=== PATIENT | female | born 1995 | race African-American/Black ===

== ENCOUNTER → 2017-07-09 12:30 | Observation (INO) ==
[2017-07-09 10:03] LABS: Basophils % 0.3 % (0.0-0.8); Eosinophils % 0.4 % (0.00-10.9); Hematocrit 35.6 VOL% (35.7-47.0); Immature Granulocytes % 0.7 %; Immature Granulocytes Absolute 0.05 #; Lymphocytes # 2.6 10*3/uL (1.4-4.0); Lymphocytes % 36.6 % (21.3-54.2); Mean Corpuscular HGB Conc 33.7 GM/DL (32-36); Mean Corpuscular Hemoglobin 28 PG (27-34); Mean Platelet Volume 8.3 FL (9.6-12.0); Monocytes # 0.5 10*3/uL (0.11-0.8); Monocytes % 7.5 % (1.7-12.7); Neutrophils # 3.8 10*3/uL (1.4-7.4); Neutrophils % 54.5 % (38.7-73.9); Platelet Count 303 T/CUMM (130-400); Red Blood Count 4.34 MC/CUMM (3.8-5.5); Red Cell Distribution Width 14.1 % (9.3-17.3)
[2017-07-09 10:32] LABS: Alanine Aminotransferase 14 U/L (13-56); Albumin 3.2 G/DL (3.4-5.0); Alkaline Phosphatase 78 U/L (45-117); Aspartate Amino Transferase 11 U/L (0-37); Bilirubin,Total < 0.39 MG/DL (0.2-1.0); Blood Urea Nitrogen 5 MG/DL (7-18); Calcium 10.6 MG/DL (8.5-10.1); Glucose 88 MG/DL (74-106); Osmolality,Calculated 272.5 MOS/KG (273-304); Sodium 139 MMOL/L (136-145); Total Protein 6.4 G/DL (6.4-8.3)
[2017-07-09 11:29] VITALS: BP 115/61
[2017-07-09 12:16] LABS: Apearance,Urine Clear (Clear); Bilirubin,Urine Negative (Negative); Blood, Urine Negative (Negative); Glucose,Urine (UA) Negative (Negative); Ketones,Urine Negative (Negative); Nitrite,Urine Negative (Negative); Protein,Urine Negative; Urine Color Yellow (Yellow); Urine Specific Gravity 1.005 (1.001-1.035); Urine Urobilinogen 0.2 EU/DL (0.2-1.0)
[2017-07-09 12:28] LABS: Amorphous Crystals,Urine Moderate /HPF (Few); Squamous Epithelial Cell,Urine Few /HPF (0-10)
[~2017-07-09 12:30] MED LIST: LACTATED RINGERS 1,000 ML IV ONE; ONDANSETRON 4 MG/2 ML VIAL IV PRN
== END | disposition home or self-care (01) ==
LOC: N.OB
PROVIDERS: ADMIT Specialist; ATTEND Specialist

== ENCOUNTER 2018-01-06 09:25 | Inpatient (IN) ==
[2018-01-06 10:09] LABS: Apearance,Urine Slightly Hazy (Clear); Bacteria,Urine Occasional /HPF (Few); Bilirubin,Urine Negative (Negative); Blood, Urine Negative (Negative); Glucose,Urine (UA) Negative (Negative); Ketones,Urine Negative (Negative); Nitrite,Urine Negative (Negative); Protein,Urine Negative; RBC,Urine 1 /HPF (0-4); Squamous Epithelial Cell,Urine Occasional /HPF (0-10); Urine Color Yellow (Yellow); Urine Specific Gravity 1.008 (1.001-1.035); Urine Urobilinogen < 2.0 EU/DL (0.2-1.0); WBC,Urine 1 /HPF (0-6)
[2018-01-06 11:00] LABS: Basophils % 0.4 % (0.0-0.8); Eosinophils % 0.4 % (0.00-10.9); Hematocrit 33.4 VOL% (35.7-47.0); Immature Granulocytes % 1.6 %; Immature Granulocytes Absolute 0.13 #; Lymphocytes # 2.2 10*3/uL (1.4-4.0); Lymphocytes % 27.1 % (21.3-54.2); Mean Corpuscular HGB Conc 32.9 GM/DL (32-36); Mean Corpuscular Hemoglobin 26 PG (27-34); Mean Corpuscular Volume 78.4 FL (87-102); Mean Platelet Volume 8.5 FL (9.6-12.0); Monocytes # 0.5 10*3/uL (0.11-0.8); Monocytes % 6.1 % (1.7-12.7); Neutrophils # 5.3 10*3/uL (1.4-7.4); Neutrophils % 64.4 % (38.7-73.9); Platelet Count 348 T/CUMM (130-400); Red Blood Count 4.26 MC/CUMM (3.8-5.5); Red Cell Distribution Width 14.3 % (9.3-17.3); White Blood Count 8.2 T/CUMM (4-12)
[2018-01-06 11:25] LABS: Alanine Aminotransferase 11 U/L (13-56); Albumin 2.3 G/DL (3.4-5.0); Alkaline Phosphatase 245 U/L (45-117); Aspartate Amino Transferase 13 U/L (0-37); Bilirubin,Total < 0.39 MG/DL (0.2-1.0); Blood Urea Nitrogen 3 MG/DL (7-18); Calcium 9.6 MG/DL (8.5-10.1); Glucose 72 MG/DL (74-106); Osmolality,Calculated 274.4 MOS/KG (273-304); Potassium 3.5 MMOL/L (3.5-5.1); Sodium 140 MMOL/L (136-145); Total Protein 6.3 G/DL (6.4-8.3); Uric Acid 5.1 MG/DL (2.6-6.0)
[2018-01-06] MEDS ORDERED: ONDANSETRON 4 MG/2 ML VIAL IV PRN (12:54)
[2018-01-06] MEDS ORDERED: miSOPROStol 200 MCG TABLET ONE (13:05)
[2018-01-06] MEDS ORDERED: LABETALOL 200 MG TABLET ONE (13:05)
[2018-01-06] MEDS: LABETALOL 100 MG TABLET PO SCH ×2 (13:22→21:42)
[2018-01-06] MEDS ORDERED: CLINDAMYCIN INJ 900 MG in PREMIX 1 EACH IV SCH (13:30)
[2018-01-06] MEDS: LACTATED RINGERS 1,000 ML IV SCH ×2 (16:16→17:17)
[2018-01-06] MEDS: BUTORPHANOL 2 MG/ML VIAL IV PRN ×2 (16:16→20:19)
[2018-01-06] MEDS ORDERED: hydrOXYzine HCL 25 MG/1 ML VIAL IM PRN (22:55)
[2018-01-06] MEDS ORDERED: diphenhydrAMINE 50 MG/1 ML VIAL IV PRN ×2 (22:55)
[2018-01-06] MEDS ORDERED: CITRIC ACID/SODIUM CITRATE 30 ML UDCUP PO ONE (22:55)
[2018-01-06] MEDS ORDERED: PROMETHAZINE 25 MG/1 ML VIAL IM ONE (22:55)
[2018-01-06] MEDS ORDERED: FAMOTIDINE 20 MG/2 ML VIAL IV ONE (22:55)
[2018-01-06] MEDS ORDERED: ePHEDrine 50 MG/ML AMP IV PRN (22:55)
[2018-01-06] MEDS ORDERED: LACTATED RINGERS 1,000 ML IV ONE (22:55)
[2018-01-06] MEDS ORDERED: fentaNYL 2 MCG/ROPIV 0.2% EPID 150 ML EPIDURAL SCH (23:00)
[2018-01-07] MEDS: LACTATED RINGERS 1,000 ML IV SCH ×3 (00:12→17:44)
[2018-01-07] MEDS: CLINDAMYCIN INJ 900 MG in PREMIX 1 EACH IV SCH ×4 (00:57→21:13)
[2018-01-07] MEDS ORDERED: TERBUTALINE 1 MG/1 ML VIAL SUBCUT ONE ×2 (01:42→02:37)
[2018-01-07 02:32] LABS: Apearance,Urine CLEAR (Clear); Bilirubin,Urine Negative (Negative); Blood, Urine Negative (Negative); Glucose,Urine (UA) Negative (Negative); Ketones,Urine 20 mg/dL (Negative); Nitrite,Urine Negative (Negative); Protein,Urine Negative; Urine Color Straw (Yellow); Urine Specific Gravity 1.005 (1.001-1.035); Urine Urobilinogen < 2.0 EU/DL (0.2-1.0); WBC,Urine <1 /HPF (0-6)
[2018-01-07] MEDS ORDERED: OXYTOCIN/LR 20 UNIT/1,000 ML BAG IV ONE ×3 (03:48→08:51)
[2018-01-07] MEDS ORDERED: MORPHINE 10 MG/10 ML VIAL ONE (04:14)
[2018-01-07] MEDS ORDERED: KETOROLAC 60 MG/2 ML VIAL IM ONE (04:14)
[2018-01-07] MEDS ORDERED: OXYTOCIN 10 UNIT/ML VIAL ONE (04:14)
[2018-01-07] MEDS ORDERED: IBUPROFEN 800 MG TABLET PO PRN (04:52)
[2018-01-07] MEDS ORDERED: DIPH/TET/ACEL PERT BOOSTER VACCINE 0.5 ML VIAL IM ONE (04:52)
[2018-01-07] MEDS ORDERED: MEASLES/MUMPS/RUBELLA VACCINE 0.5 ML VIAL SUBCUT ONE (04:52)
[2018-01-07] MEDS ORDERED: ONDANSETRON 4 MG/2 ML VIAL IV PRN (04:52)
[2018-01-07] MEDS ORDERED: LANOLIN 50% CREAM 0.3 OZ TUBE TOP PRN (04:52)
[2018-01-07] MEDS ORDERED: HYDROCORTISONE 2.5% RECTAL CREAM 30 GM TUBE TOP PRN (04:52)
[2018-01-07] MEDS ORDERED: ACETAMINOPHEN 325 MG TABLET PO PRN (04:52)
[2018-01-07] MEDS ORDERED: WITCH HAZEL PADS 100/JAR TOP PRN (04:52)
[2018-01-07] MEDS ORDERED: oxyCODONE/ACETAMINOPHEN 5-325 MG TABLET PO PRN (04:52)
[2018-01-07] MEDS ORDERED: BISACODYL 10 MG SUPP RECTAL PRN (04:52)
[2018-01-07] MEDS ORDERED: BENZOCAINE 20%/MENTHOL 0.5% SPRAY 56 GM CAN TOP PRN (04:52)
[2018-01-07] MEDS ORDERED: RHO(D) IMMUNE GLOBULIN 300 MCG SYRINGE IM ONE (04:52)
[2018-01-07] MEDS: LABETALOL 100 MG TABLET PO SCH ×2 (08:39→21:15)
[2018-01-07] MEDS ORDERED: HYDROmorphone 2 MG/1 ML VIAL IV PRN (09:30)
[2018-01-07] MEDS ORDERED: KETOROLAC 30 MG/1 ML VIAL IV SCH (11:00)
[2018-01-07] MEDS: DOCUSATE SODIUM 100 MG CAPSULE PO SCH (21:13)
[2018-01-07] MEDS: KETOROLAC 30 MG/1 ML VIAL IV SCH (22:26)
[2018-01-08] MEDS: LABETALOL 100 MG TABLET PO SCH ×3 (00:01→21:46)
[2018-01-08 03:17] LABS: Basophils % 0.3 % (0.0-0.8); Eosinophils % 0.2 % (0.00-10.9); Hematocrit 27.9 VOL% (35.7-47.0); Hemoglobin 9.2 GM/DL (12.0-16.0); Immature Granulocytes % 1.3 %; Immature Granulocytes Absolute 0.14 #; Lymphocytes # 2.5 10*3/uL (1.4-4.0); Lymphocytes % 23.2 % (21.3-54.2); Mean Corpuscular Hemoglobin 26 PG (27-34); Mean Corpuscular Volume 77.5 FL (87-102); Mean Platelet Volume 8.8 FL (9.6-12.0); Monocytes # 0.8 10*3/uL (0.11-0.8); Monocytes % 7.4 % (1.7-12.7); Neutrophils # 7.4 10*3/uL (1.4-7.4); Neutrophils % 67.6 % (38.7-73.9); Platelet Count 280 T/CUMM (130-400); Red Cell Distribution Width 14.7 % (9.3-17.3); White Blood Count 10.9 T/CUMM (4-12)
[2018-01-08] MEDS ORDERED: KETOROLAC 30 MG/1 ML VIAL ONE (06:34)
[2018-01-08] MEDS: KETOROLAC 30 MG/1 ML VIAL IV SCH (06:36)
[2018-01-08] MEDS: DOCUSATE SODIUM 100 MG CAPSULE PO SCH ×2 (09:50→21:47)
[2018-01-08] MEDS: oxyCODONE/ACETAMINOPHEN 5-325 MG TABLET PO PRN ×2 (15:31→21:47)
[2018-01-09] MEDS: oxyCODONE/ACETAMINOPHEN 5-325 MG TABLET PO PRN (04:05)
[2018-01-09 07:17] VITALS: BP 129/78
[2018-01-09] MEDS: DOCUSATE SODIUM 100 MG CAPSULE PO SCH (10:02)
[2018-01-09] MEDS: LABETALOL 100 MG TABLET PO SCH (10:02)
== END 2018-01-09 12:10 | disposition home or self-care (01) | DRG 540 ==
LOC: N.LDOUT 09:25 → N.LD 09:27 → N.OB 01-07 09:29
PROVIDERS: ADMIT Specialist; ATTEND Specialist
PROC: LDCSECT (ICD-10-PCS; 2018-01-07 05:50)

== ENCOUNTER 2021-01-23 12:13 | Inpatient (IN) ==
[2021-01-23 12:59] LABS: Basophils % 0.4 % (0.0-0.8); Eosinophils # 0.1 10*3/uL (0.0-0.87); Eosinophils % 1.1 % (0.00-10.9); Hematocrit 31.9 VOL% (35.7-47.0); Hemoglobin 10.3 GM/DL (12.0-16.0); Immature Granulocytes % 1.4 %; Immature Granulocytes Absolute 0.12 #; Lymphocytes # 2.7 10*3/uL (1.4-4.0); Lymphocytes % 31.4 % (21.3-54.2); Mean Corpuscular HGB Conc 32.3 GM/DL (32-36); Mean Corpuscular Volume 79.4 FL (87-102); Monocytes % 5.8 % (1.7-12.7); Neutrophils % 59.9 % (38.7-73.9); Platelet Count 279 T/CUMM (130-400); Red Blood Count 4.02 MC/CUMM (3.8-5.5); Red Cell Distribution Width 13.7 % (9.3-17.3); White Blood Count 8.6 T/CUMM (4-12)
[2021-01-23 13:16] LABS: INR 0.9; PT Patient Result 10.2 SECS (10.5-12.0); Partial Thromboplastin Time 31.2 SECS (23.9-33.8)
[2021-01-23 13:17] LABS: Alanine Aminotransferase 11 U/L (13-56); Albumin 2.3 G/DL (3.4-5.0); Alkaline Phosphatase 183 U/L (45-117); Aspartate Amino Transferase 13 U/L (0-37); Bilirubin,Direct < 0.100 MG/DL (0.0-0.20); Bilirubin,Total < 0.39 MG/DL (0.20-1.00); Blood Urea Nitrogen 3 MG/DL (7-18); Calcium 9.4 MG/DL (8.5-10.1); Carbon Dioxide 24 MMOL/L (21-32); Estimated Glom Filtration Rate 190 ML/MIN; Glucose 69 MG/DL (74-106); Osmolality,Calculated 277.1 MOS/KG (273-304); Potassium 2.9 MMOL/L (3.5-5.1); Sodium 142 MMOL/L (136-145); Total Protein 6.1 G/DL (6.4-8.2); Uric Acid 5.7 MG/DL (2.6-6.0)
[2021-01-23] MEDS ORDERED: LABETALOL 100 MG/20 ML VIAL IV PRN (13:21)
[2021-01-23] MEDS ORDERED: LABETALOL 20 MG/4 ML SYRINGE IV PRN (13:21)
[2021-01-23 13:25] LABS: Amorphous Crystals,Urine Few /HPF (Few); Bilirubin,Urine Negative (Negative); Blood, Urine Negative (Negative); Glucose,Urine (UA) Negative (Negative); Ketones,Urine Negative (Negative); Nitrite,Urine Negative (Negative); Protein,Urine Negative; RBC,Urine 1 /HPF (0-4); Squamous Epithelial Cell,Urine Moderate /HPF (0-10); Urine Appearance Slightly Hazy (Clear); Urine Color Yellow (Yellow); Urine Urobilinogen < 2.0 EU/DL (0.2-1.0)
[2021-01-23] MEDS ORDERED: LABETALOL 100 MG/20 ML VIAL IV ONE (13:29)
[2021-01-23] MEDS ORDERED: MAGNESIUM SULF RIDER 4 GM/100 ML PREMIX IV ONE (13:54)
[2021-01-23] MEDS ORDERED: BETAMETH SODIUM PHOS/ACETATE 30 MG/5 ML VIAL IM SCH (14:00)
[2021-01-23] MEDS ORDERED: MAGNESIUM SULF DRIP 40 GM/1,000 ML ML IV SCH (14:00)
[2021-01-23] MEDS: LABETALOL 100 MG/20 ML VIAL IV PRN ×2 (14:10→14:35)
[2021-01-23] MEDS: LACTATED RINGERS 1,000 ML IV SCH (14:40)
[2021-01-23 14:43] LABS: Protein/Creatinine Ratio,Urine 0.3 RATIO
[2021-01-23] MEDS ORDERED: hydrALAZINE 20 MG/1 ML VIAL ONE (15:00)
[2021-01-23] MEDS: hydrALAZINE 20 MG/1 ML VIAL IV PRN ×2 (15:06→15:34)
[2021-01-23] MEDS ORDERED: ePHEDrine 50 MG/ML VIAL IV PRN (15:31)
[2021-01-23] MEDS ORDERED: hydrOXYzine HCL 25 MG/1 ML VIAL IM PRN ×2 (15:31→17:47)
[2021-01-23] MEDS ORDERED: PROMETHAZINE 25 MG/1 ML VIAL IM ONE (15:31)
[2021-01-23] MEDS ORDERED: diphenhydrAMINE 50 MG/1 ML VIAL IV PRN ×2 (15:31)
[2021-01-23] MEDS ORDERED: CLINDAMYCIN INJ 900 MG/50 ML PREMIX IV ONE (15:31)
[2021-01-23] MEDS ORDERED: FAMOTIDINE 20 MG/2 ML VIAL IV ONE (15:31)
[2021-01-23] MEDS ORDERED: ONDANSETRON 4 MG/2 ML VIAL IV ONE (15:31)
[2021-01-23] MEDS ORDERED: CITRIC ACID/SODIUM CITRATE 30 ML UDCUP PO ONE (15:31)
[2021-01-23] MEDS ORDERED: OXYTOCIN/LR 20 UNIT/1,000 ML BAG IV ONE ×2 (15:45→18:48)
[2021-01-23] MEDS ORDERED: ONDANSETRON 4 MG/2 ML VIAL ONE ×2 (15:59→17:07)
[2021-01-23] MEDS ORDERED: BUPIVACAINE SPINAL 0.75% 2 ML AMP SPINAL ONE (15:59)
[2021-01-23] MEDS ORDERED: LACTATED RINGERS 1,000 ML IV ONE (16:55)
[2021-01-23] MEDS ORDERED: LIDOCAINE 2% 5 ML VIAL ONE (17:07)
[2021-01-23] MEDS ORDERED: KETOROLAC 30 MG/1 ML VIAL ONE ×2 (17:13)
[2021-01-23 17:27] LABS: Cord Venous Blood HCO3 23.2 MMOL/L; Cord Venous Blood PCO2 45.5 MMHG; Cord Venous Blood PO2 24.9
[2021-01-23] MEDS ORDERED: HYDROmorphone 2 MG/1 ML VIAL IV PRN (17:47)
[2021-01-23] MEDS ORDERED: POTASSIUM CHLORIDE RIDER 10 MEQ/100 ML PREMIX IV PRN (18:37)
[2021-01-23] MEDS ORDERED: LABETALOL 200 MG TABLET ONE (18:58)
[2021-01-23] MEDS ORDERED: LABETALOL 200 MG TABLET PO SCH (20:00)
[2021-01-23] MEDS: POTASSIUM CHLORIDE 20 MEQ TABLET PO PRN ×2 (21:25→23:28)
[2021-01-23] MEDS: ACETAMINOPHEN 500 MG TABLET PO SCH (23:29)
[2021-01-23] MEDS: KETOROLAC 30 MG/1 ML VIAL IV SCH (23:36)
[2021-01-24] MEDS: CLINDAMYCIN INJ 900 MG/50 ML PREMIX IV SCH ×2 (00:03→09:25)
[2021-01-24] MEDS: POTASSIUM CHLORIDE 20 MEQ TABLET PO PRN ×2 (02:47→04:30)
[2021-01-24] MEDS: LABETALOL 200 MG TABLET PO SCH ×3 (02:48→20:45)
[2021-01-24] MEDS: LACTATED RINGERS 1,000 ML IV SCH (03:05)
[2021-01-24 03:23] LABS: Basophils % 0.1 % (0.0-0.8); Hematocrit 32.1 VOL% (35.7-47.0); Hemoglobin 10.3 GM/DL (12.0-16.0); Immature Granulocytes % 1.2 %; Immature Granulocytes Absolute 0.17 #; Lymphocytes # 1.6 10*3/uL (1.4-4.0); Lymphocytes % 11.2 % (21.3-54.2); Mean Corpuscular HGB Conc 32.1 GM/DL (32-36); Mean Corpuscular Volume 78.9 FL (87-102); Monocytes % 2.7 % (1.7-12.7); NRBC # 0.02 10*3/uL; Neutrophils % 84.8 % (38.7-73.9); Platelet Count 323 T/CUMM (130-400); Red Blood Count 4.07 MC/CUMM (3.8-5.5); Red Cell Distribution Width 13.9 % (9.3-17.3); White Blood Count 14.3 T/CUMM (4-12)
[2021-01-24 03:39] LABS: INR 0.9; PT Patient Result 9.8 SECS (10.5-12.0); Partial Thromboplastin Time 30.9 SECS (23.9-33.8)
[2021-01-24 03:40] LABS: Alanine Aminotransferase 11 U/L (13-56); Albumin 2.3 G/DL (3.4-5.0); Alkaline Phosphatase 172 U/L (45-117); Aspartate Amino Transferase 17 U/L (0-37); Bilirubin,Direct < 0.050 MG/DL (0.0-0.20); Bilirubin,Total < 0.39 MG/DL (0.20-1.00); Blood Urea Nitrogen 4 MG/DL (7-18); Carbon Dioxide 23 MMOL/L (21-32); Estimated Glom Filtration Rate 170 ML/MIN; Glucose 162 MG/DL (74-106); Osmolality,Calculated 275.7 MOS/KG (273-304); Potassium 3.5 MMOL/L (3.5-5.1); Sodium 138 MMOL/L (136-145); Total Protein 6.3 G/DL (6.4-8.2); Uric Acid 5.6 MG/DL (2.6-6.0)
[2021-01-24] MEDS: ACETAMINOPHEN 500 MG TABLET PO SCH ×3 (05:57→18:23)
[2021-01-24] MEDS: KETOROLAC 30 MG/1 ML VIAL IV SCH ×2 (05:59→12:15)
[2021-01-24] MEDS: MULTIVITAMIN (PRENATAL) TABLET PO SCH (09:25)
[2021-01-24] MEDS: DOCUSATE SODIUM 100 MG CAPSULE PO SCH ×2 (09:25→20:45)
[2021-01-24] MEDS: oxyCODONE/ACETAMINOPHEN 5-325 MG TABLET PO PRN ×2 (15:54→21:45)
[2021-01-24] MEDS: MAGNESIUM HYDROXIDE SUSP 30 ML UDCUP PO PRN (20:45)
[2021-01-24] MEDS: IBUPROFEN 800 MG TABLET PO PRN (20:45)
[2021-01-25] MEDS: LABETALOL 200 MG TABLET PO SCH ×3 (03:48→18:40)
[2021-01-25] MEDS: IBUPROFEN 800 MG TABLET PO PRN ×2 (07:43→22:27)
[2021-01-25] MEDS: oxyCODONE/ACETAMINOPHEN 5-325 MG TABLET PO PRN ×3 (07:43→22:27)
[2021-01-25] MEDS: DOCUSATE SODIUM 100 MG CAPSULE PO SCH ×2 (09:07→21:53)
[2021-01-25] MEDS: MAGNESIUM HYDROXIDE SUSP 30 ML UDCUP PO PRN (09:07)
[2021-01-25] MEDS: MULTIVITAMIN (PRENATAL) TABLET PO SCH (09:07)
[2021-01-26] MEDS: LABETALOL 200 MG TABLET PO SCH ×2 (03:04→10:52)
[2021-01-26] MEDS: MULTIVITAMIN (PRENATAL) TABLET PO SCH (08:46)
[2021-01-26] MEDS: DOCUSATE SODIUM 100 MG CAPSULE PO SCH (08:46)
[2021-01-26] MEDS: oxyCODONE/ACETAMINOPHEN 5-325 MG TABLET PO PRN (10:52)
[2021-01-26] MEDS: IBUPROFEN 800 MG TABLET PO PRN (10:53)
[2021-01-26] MEDS ORDERED: DIPH/TET/ACEL PERT BOOSTER VACCINE 0.5 ML VIAL IM ONE (13:57)
[2021-01-26 14:55] VITALS: BP 147/84
== END 2021-01-26 14:30 | disposition home or self-care (01) | DRG 540 ==
LOC: N.LDOUT 12:13 → N.LD 12:15 → N.OB 01-24 13:55
PROVIDERS: ADMIT Obstetrics & Gynecology; ATTEND Obstetrics & Gynecology
PROC: LDCSECT (ICD-10-PCS; 2021-01-23 16:00)